=== PATIENT | female | born 1985 | race Caucasian/White ===

== ENCOUNTER 2020-03-04 22:48 | Emergency (ER) | payer MEDICAID ==
[~2020-03-04] VITALS: Ht 160 cm; Wt 139.7 kg
[2020-03-04 23:04] VITALS: BP_SYST 111
--- NOTE | 2020-03-04 23:20 | NUR ---
Patient triaged and placed in waiting room. VSS and patient appears in no acute distress at this time. Accompanied by self , awaiting available bed, and MD notified of need for MSE.
--- NOTE | 2020-03-05 02:10 | NUR ---
Patient to ER bed HALLWAYS CHAIR to gown for evaluation. Side rails up.
--- NOTE | 2020-03-05 02:20 | NUR ---
PT BIB ALS A&OX4 C/O OF CHEST PAIN "FEELS LIKE A HOLE" 02/18 PAIN RADIATING TO BACK, TINGLING IN LEGS THAT STARTED TODAY. PT REPORTS BEING AT [facility] YESTERDAY FOR SAME SYMPTOMS AND THEY TOLD HER SHE HAD AN 'INFLAMED CHEST CAVITY". PT REPORTS SHE CLEANING ROOMMATES ROOM A COUPLE DAYS AGO THAT WAS INFESTED WITH RODENTS. PT REPORTS FAINTING YESTERDAY AND TODAY. PT HX ANXIETY.
--- NOTE | 2020-03-05 03:13 | NUR ---
ER at bedside examining patient.
--- NOTE | 2020-03-05 03:28 | NUR ---
Pt moved to bed 3
--- NOTE | 2020-03-05 03:46 | NUR ---
REPORT GIVEN TO MEKA CARBAJAL FOR CONTINUATION OF CARE.
[2020-03-05 04:25] LABS: BASOPHILS % (AUTO) 0.3 % (0.0-2.0); EOSINOPHILS % (AUTO) 0.3 % (0.0-4.0); HEMATOCRIT 36.9 % (36-48); HEMOGLOBIN 12.4 g/dL (12.0-16.0); LYMPHOCYTES # (AUTO) 2.4 K/uL (1.0-5.5); LYMPHOCYTES % (AUTO) 24.4 % (20.5-51.5); MEAN CORPUSCULAR HEMOGLOBIN 31 pg (27-31); MEAN CORPUSCULAR HGB CONC 34 % (32-36); MEAN CORPUSCULAR VOLUME 91 fL (79.0-98.0); MONOCYTES # (AUTO) 0.4 K/uL (0.0-1.0); MONOCYTES % (AUTO) 4.2 % (1.7-9.3); NEUTROPHILS # (AUTO) 7.1 K/uL (1.8-7.7); NEUTROPHILS % (AUTO) 70.8 % (40.0-70.0); PLATELET COUNT (AUTO) 275 K/uL (130-430); RED BLOOD CELL COUNT(AUTO) 4.05 MIL/uL (4.2-6.2)
[2020-03-05 04:35] LABS: CALCIUM 8.1 mg/dL (8.4-11.0); CREATININE 0.78 mg/dL (0.55-1.30); POTASSIUM 3.9 mmol/L (3.5-5.1)
--- NOTE | 2020-03-05 04:50 | NUR ---
Patient sleeping comfortably. No report of pain or discomfort.
[2020-03-05 06:02] VITALS: BP_SYST 123
--- NOTE | 2020-03-05 06:02 | NUR ---
Patient given written and verbal discharge instructions and verbalizes understanding. ER MD discussed with patient the results and treatment provided. Patient in stable condition. ID arm band removed. No Rx given. Patient educated on pain management and to follow up with PMD. Pain Scale 0/10. Opportunity for questions provided and answered.
== END 2020-03-05 06:02 | disposition home or self-care (01) ==
LOC: SED 22:48
DX: R55 Syncope and collapse (principal); R07.89 Other chest pain
CPT/HCPCS: 36415; 71045; 80048; 81025; 84484; 84702-TC; 85025; 93005; 99285